=== PATIENT | female | born 1960 | race Caucasian/White ===

== ENCOUNTER 2016-08-27 14:36 | Inpatient (IN) | payer BC, OTHER ==
[2016-08-27] MEDS ORDERED: HYDROMORPHONE HCL INJ/PF 2 MG/ML AMPULE IV ONE ×3 (14:57→16:42)
[2016-08-27] MEDS ORDERED: ONDANSETRON HCL INJ/PF 4 MG/2 ML SDV IV ONE (14:57)
--- NOTE | 2016-08-27 14:57 | ER Document Report ---
ED Hip Pain/Injury - General Chief Complaint: Hip Injury Stated Complaint: FALL,HIP PAIN Time seen by provider: 14:51 Mode of Arrival: Medic Information source: Patient Notes: 55-year-old female slipped and fell in [place] on the cement injuring her left hip prior to arrival She had to call EMS she was unable to walk. No chronic diseases except that she is allergic to gluten and smokes tobbacco. - Related Data Allergies/Adverse Reactions: gluten [Gluten] Allergy (Verified 09/07/12 15:31) Home Medications: Current Home Medications No Home Medications 08/27/16 [History] Past Medical History - General Information source: Patient - Social History Smoking Status: Current Every Day Smoker Frequency of alcohol use: None Drug Abuse: None Lives with: Spouse/Significant other Family History: Reviewed & Not Pertinent - Medical History Medical History: Negative Past Surgical History: Reports: Hx Section - x2 Review of Systems - Review of Systems Constitutional: No symptoms reported EENT: No symptoms reported Cardiovascular: No symptoms reported Respiratory: No symptoms reported Gastrointestinal: No symptoms reported Genitourinary: No symptoms reported Female Genitourinary: No symptoms reported Musculoskeletal: See HPI Skin: No symptoms reported Hematologic/Lymphatic: No symptoms reported Neurological/Psychological: No symptoms reported Physical Exam - Vital signs Vitals: Temp Pulse Resp BP Pulse Ox 98.2 F 80 16 142/76 H 95 08/27/16 17:03 08/27/16 17:03 08/27/16 17:03 08/27/16 17:03 08/27/16 17:03 vitals at 1424 107/73, 71, rr 16, pulse ox 97% Interpretation: Normal - General General appearance: Appears well, Alert In distress: None - HEENT Head: Normocephalic, Atraumatic Eyes: Normal Pupils: PERRL Mucous membranes: Normal Neck: Supple. No: Lymphadenopathy - Respiratory Respiratory status: No respiratory distress Chest status: Nontender Breath sounds: Normal Chest palpation: Normal - Cardiovascular Rhythm: Regular Heart sounds: Normal auscultation Murmur: No - Abdominal Inspection: Normal Distension: No distension Bowel sounds: Normal Tenderness: Nontender. No: Tender Organomegaly: No organomegaly - Back Back: Normal, Nontender - Extremities General upper extremity: Normal inspection, Nontender, Normal color, Normal ROM , Normal temperature General lower extremity: Normal inspection, Nontender, Normal color, Normal ROM , Normal temperature, Normal weight bearing. No: Saqib's sign Hip: Tender - great trochantur, Other - foot externally rotated, not shortened, non tender pelvis, 2 + PT - Neurological Neuro grossly intact: Yes Cognition: Normal Orientation: AAOx4 [place] Coma Scale Eye Opening: Spontaneous [place] Coma Scale Verbal: Oriented [place] Coma Scale Motor: Obeys Commands Jorge Coma Scale Total: 15 Speech: Normal Motor strength normal: LUE, RUE, LLE, RLE Sensory: Normal - Psychological Associated symptoms: Normal affect, Normal mood - Skin Skin Temperature: Warm Skin Moisture: Dry Skin Color: Normal Course - Re-evaluation Re-evalutation: 08/27/16 16:08 will admit the pt for the subcapital femoral neck fracture. dr. ma aware. - Vital Signs Vital signs: Temp Pulse Resp BP Pulse Ox 98.2 F 80 16 142/76 H 95 08/27/16 17:03 08/27/16 17:03 08/27/16 17:03 08/27/16 17:03 08/27/16 17:03 - Transfer of Care Care transferred to following provider: Mayela yanez [employer] UP WORKER at 1901, pt awaiting bed Discharge - Discharge Clinical Impression: Fracture of femoral neck, left, closed Qualifiers: Encounter type: initial encounter Qualified Code(s): S72.002A - Fracture of unspecified part of neck of left femur, initial encounter for closed fracture Condition: Good Disposition: ADMITTED INPATIENT Admitting Provider: librado Unit Admitted: Surgical Floor
[2016-08-27] MEDS ORDERED: OXYCODONE-ACETAMINOPHEN 5-325 MG TABLET PO ONE (18:54)
[2016-08-27] MEDS ORDERED: NORMAL SALINE 1000 ML 1,000 ML IV PRN (23:02)
[2016-08-27] MEDS ORDERED: OXYCODONE HCL IR 5 MG TABLET PO PRN ×3 (23:02→23:07)
[2016-08-27] MEDS ORDERED: ONDANSETRON HCL INJ/PF 4 MG/2 ML SDV IV PRN (23:04)
[2016-08-27] MEDS: MORPHINE SULFATE 10 MG/ML INJ IV PRN (23:36)
[2016-08-27] MEDS: ONDANSETRON HCL INJ/PF 4 MG/2 ML SDV IV PRN (23:38)
[2016-08-28] MEDS: MORPHINE SULFATE 10 MG/ML INJ IV PRN ×5 (03:11→19:53)
[2016-08-28] MEDS: ONDANSETRON HCL INJ/PF 4 MG/2 ML SDV IV PRN ×2 (06:28→19:53)
[2016-08-28] MEDS ORDERED: MIDAZOLAM 2 MG/2 ML INJ ONE (07:27)
[2016-08-28] MEDS ORDERED: FENTANYL CITRATE INJ/PF 100 MCG/2 ML AMPUL ONE (07:27)
[2016-08-28] MEDS ORDERED: EPHEDRINE SULFATE INJ 50 MG/1 ML AMPULE ONE (07:28)
[2016-08-28] MEDS ORDERED: PROPOFOL INJ 200 MG/20 ML VIAL IV ONE (07:28)
[2016-08-28] MEDS ORDERED: DEXMEDETOMIDINE INJ 80 MCG/20 ML VIAL IV ONE (07:28)
[2016-08-28] MEDS ORDERED: ACETAMINOPHEN 100 ML IV ONE (07:28)
[2016-08-28] MEDS ORDERED: MORPHINE SULFATE 10 MG/ML INJ ONE (07:29)
--- NOTE | 2016-08-28 07:35 | PDOC H&P ---
History of Present Illness Admission Date/PCP: 08/27/16 16:37 History of Present Illness: LEVY KUMARI is a 55 year old female who tripped and fell and sustained a left hip injury. She was unable to ambulate. She is brought to the emergency room. A valgus impacted left femoral neck fracture was then a 5. She is admitted to the orthopedic service for fracture management. Past Medical History Cardiac Medical History: Denies: Myocardial Infarction, Hypertension Pulmonary Medical History: Denies: Asthma Neurological Medical History: Denies: Seizures GI Medical History: Denies: Hepatitis, Hiatal Hernia Hematology: Denies: Anemia, Sickle Cell Disease Past Surgical History Past Surgical History: Reports: Section - x2 Denies: Amputation, Hysterectomy, Mastectomy, Pacemaker Social History Lives with: Spouse/Significant other Smoking Status: Current Some Day Smoker Cigarettes Packs Per Day: 0.5 Number of Years Smokin Last Time Smoked: today Frequency of Alcohol Use: None Hx Recreational Drug Use: No Drugs: None Hx Prescription Drug Abuse: No - Advance Directive Resuscitation Status: Full Code Family History Family History: Reviewed & Not Pertinent Parental Family History Reviewed: No Children Family History Reviewed: No Sibling(s) Family History Reviewed.: No Medication/Allergy Home Medications: No Home Medications 08/27/16 Allergies/Adverse Reactions: gluten [Gluten] Allergy (Verified 09/07/12 15:31) Review of Systems All systems: as per PMH Physical Exam Vital Signs: Temp Pulse Resp BP Pulse Ox 36.8 C 77 18 143/67 H 93 08/28/16 04:15 08/28/16 04:15 08/28/16 04:15 08/28/16 04:15 08/28/16 04:15 Intake & Output 08/27/16 08/28/16 08/29/16 06:59 06:59 06:59 Output Total 700 Balance -700 Weight 53.524 kg General appearance: PRESENT: mild distress Head exam: PRESENT: normocephalic Eye exam: PRESENT: EOMI Respiratory exam: PRESENT: unlabored Cardiovascular exam: PRESENT: RRR Pulses: PRESENT: +1 pedal pulses bilateral Vascular exam: PRESENT: normal capillary refill GI/Abdominal exam: PRESENT: soft Rectal exam: PRESENT: deferred Extremities exam: PRESENT: other - Patient lying in bed and only minor distress. Any passive range of motion of the left lower extremity is painful. Distal neurovascular examination is intact. Leg lengths are equal. Neurological exam: PRESENT: alert, awake, oriented to person, oriented to place , oriented to time, oriented to situation, CN II-XII grossly intact. ABSENT: motor sensory deficit Psychiatric exam: PRESENT: appropriate affect, normal mood. ABSENT: homicidal ideation, suicidal ideation Results Impressions: Hip X-Ray 08/27/16 14:57 IMPRESSION: Acute subcapital left femoral neck fracture with slight valgus angulation at the fracture site Status: Imported from PACS Assessment & Plan - Diagnosis (1) Fracture of femoral neck, left, closed Qualifiers: Encounter type: initial encounter Qualified Code(s): S72.002A - Fracture of unspecified part of neck of left femur, initial encounter for closed fracture Is this a current diagnosis for this admission?: YesPlan: 55-year-old white female with a noncontributory past medical history who has fallen and sustained a left femoral neck fracture. Plan will be for a percutaneous pinning under local Mac anesthesia pending OR availability. - Time Time Spent: 50 to 70 Minutes Anticipated discharge: Home with Homehealth Within: within 24 hours
[2016-08-28] MEDS ORDERED: BUPIVACAINE HCL 0.5%-EPI 1:200000 INJ/PF 30 ML VIAL ONE (07:42)
[2016-08-28] MEDS ORDERED: BUPIVACAINE HCL 0.25% /EPINEPHRINE INJ/PF 30 ML SDV ONE (07:42)
[2016-08-28] MEDS ORDERED: BUPIVACAINE HCL 0.5 % INJ/PF 30 ML SDV ONE (07:42)
[2016-08-28] MEDS ORDERED: BUPIVACAINE HCL 0.25 % INJ/PF (2.5 MG/1 ML) 30 ML VIAL ONE (07:42)
[2016-08-28 08:11] LABS: ABSOLUTE EOSINOPHILS # (AUTO) 0.1 10^3/uL (0.0-0.6); ABSOLUTE MONOCYTES (AUTO) 0.9 10^3/uL (0.1-1.4); ABSOLUTE NEUT (AUTO) 7.2 10^3/uL (1.7-8.2); BASOPHILS % (AUTO) 0.2 % (0-2); EOSINOPHILS % (AUTO) 1.4 % (0-6); HEMATOCRIT 38.3 % (36.0-47.0); HEMOGLOBIN 12.7 g/dL (12.0-15.5); HGB HCT DIFFERENCE -0.2; MEAN CORPUSCULAR HEMOGLOBIN 31.4 pg (27.0-33.4); MEAN CORPUSCULAR HGB CONC 33.2 g/dL (32.0-36.0); MEAN CORPUSCULAR VOLUME 95 fl (80-97); MONOCYTES % (AUTO) 10.2 % (3-13); RED BLOOD COUNT 4.05 10^6/uL (3.72-5.28); RED CELL DISTRIBUTION WIDTH 13.4 % (11.5-14.0); SEGMENTED NEUTROPHILS % (AUTO) 77.2 % (42-78); WHITE BLOOD COUNT 9.3 10^3/uL (4.0-10.5)
[2016-08-28] MEDS ORDERED: ALBUTEROL SULFATE 0.083% NEB 2.5 MG/3 ML AMPUL NEB ONE (08:13)
[2016-08-28] MEDS ORDERED: SCOPOLAMINE HYDROBROMIDE 1.5 MG PATCH.TD72 ONE (08:18)
[2016-08-28 08:19] LABS: PROTHROMBIN TIME 12.9 SEC (11.4-15.4)
[2016-08-28 08:20] LABS: PARTIAL THROMBOPLASTIN TIME 28.4 SEC (23.5-35.8)
[2016-08-28] MEDS ORDERED: CEFAZOLIN INJ 1 GM VIAL ONE (08:22)
[2016-08-28 08:29] LABS: ANION GAP 7 (5-19); BLOOD UREA NITROGEN 8 mg/dL (7-20); CALCIUM 8.9 mg/dL (8.4-10.2); CARBON DIOXIDE 26 mmol/L (22-30); CHLORIDE 106 mmol/L (98-107); CREATININE RESULT 0.67 mg/dL (0.52-1.25); GLUCOSE 108 mg/dL (75-110); POTASSIUM 3.9 mmol/L (3.6-5.0); SODIUM 138.9 mmol/L (137-145)
--- NOTE | 2016-08-28 08:55 | Operative Report ---
Operative Report DATE OF SURGERY: 08/28/16 PREOPERATIVE DIAGNOSIS: Left femoral neck fracture OPERATION: Percutaneous pinning of left femoral neck fracture SURGEON: DONNA HAWKINS ANESTHESIA: LMAC PROCEDURE: Implants used: Domingo titanium 6.5 mm cannulated screws, partially threaded 3 With the patient supine on the fracture table the left lower extremity hindquarter prepped and draped in a sterile fashion. Under fluoroscopic guidance. The pins for the Domingo titanium 6.5 mm partially-threaded screws are placed percutaneously through the lateral femur up into the femoral neck and head. The first pin is placed along the calcar and the second to place more proximally. The position is checked fluoroscopically in both AP and lateral dimensions and felt to be adequate. Subsequently a 90 followed by 285 mm screws were advanced over the pins and seated on the lateral cortex. The pins are removed. The screw position was again checked fluoroscopically and felt to be adequate. The wound is irrigated. It's closed using Vicryl and ida. A sterile OpSite was applied and patient returned to PACU in satisfactory condition.
[2016-08-28] MEDS ORDERED: FENTANYL CITRATE INJ/PF 100 MCG/2 ML AMPUL IV PRN ×3 (09:04)
[2016-08-28] MEDS ORDERED: MORPHINE SULFATE 10 MG/ML INJ IV PRN (09:04)
[2016-08-28] MEDS ORDERED: DIPHENHYDRAMINE HCL 50 MG/ML VIAL IV PRN (09:04)
[2016-08-28] MEDS ORDERED: MEPERIDINE HCL/PF INJ 25 MG/1 ML DISP.SYRIN IV PRN (09:04)
[2016-08-28] MEDS ORDERED: PROMETHAZINE HCL INJ 25 MG/1 ML VIAL IV PRN ×2 (09:04)
[2016-08-28] MEDS ORDERED: OXYCODONE-ACETAMINOPHEN 5-325 MG TABLET PO PRN ×2 (09:04)
[2016-08-28] MEDS: FENTANYL CITRATE INJ/PF 100 MCG/2 ML AMPUL ONE ×2 (09:12→09:23)
[2016-08-28] MEDS ORDERED: METOCLOPRAMIDE HCL INJ/PF 10 MG/2 ML SDV ONE (10:30)
[2016-08-28] MEDS ORDERED: DEXAMETHASONE SOD PHOSPHATE INJ 4 MG/1 ML VIAL ONE (10:30)
[2016-08-28] MEDS ORDERED: PHENYLEPHRINE HCL INJ/PF 10 MG/1 ML SDV ONE (10:30)
[2016-08-28] MEDS ORDERED: ONDANSETRON HCL INJ/PF 4 MG/2 ML SDV ONE (10:30)
[2016-08-28] MEDS ORDERED: LIDOCAINE 2% INJ-PF (20 MG/ML) 10 ML AMPUL ONE (10:30)
--- NOTE | 2016-08-28 10:38 | EKG REPORT ---
SEVERITY:- ABNORMAL ECG - SINUS RHYTHM PROBABLE LEFT ATRIAL ABNORMALITY PROBABLE LEFT VENTRICULAR HYPERTROPHY : Confirmed by: Yolande Marcos 28-Aug-2016 10:38:09
[2016-08-28] MEDS: RINGERS SOLUTION,LACTATED 1,000 ML IV PRN ×2 (11:03→16:59)
[2016-08-28] MEDS: CEFAZOLIN SODIUM 1 GM in DEXTROSE 5%-WATER 50 ML IV SCH (17:37)
[2016-08-28] MEDS: RIVAROXABAN 10 MG TABLET PO SCH (21:48)
[2016-08-29] MEDS: CEFAZOLIN SODIUM 1 GM in DEXTROSE 5%-WATER 50 ML IV SCH (01:12)
[2016-08-29] MEDS: MORPHINE SULFATE 10 MG/ML INJ IV PRN ×7 (01:55→21:08)
[2016-08-29] MEDS: ONDANSETRON HCL INJ/PF 4 MG/2 ML SDV IV PRN (01:55)
[2016-08-29 07:03] LABS: ABSOLUTE LYMPHOCYTES (AUTO) 1.6 10^3/uL (0.5-4.7); ABSOLUTE MONOCYTES (AUTO) 1.2 10^3/uL (0.1-1.4); ABSOLUTE NEUT (AUTO) 8.1 10^3/uL (1.7-8.2); BASOPHILS % (AUTO) 0.1 % (0-2); EOSINOPHILS % (AUTO) 0.4 % (0-6); HEMATOCRIT 33.5 % (36.0-47.0); HEMOGLOBIN 11.5 g/dL (12.0-15.5); LYMPHOCYTES % (AUTO) 14.2 % (13-45); MEAN CORPUSCULAR HEMOGLOBIN 32.3 pg (27.0-33.4); MEAN CORPUSCULAR HGB CONC 34.4 g/dL (32.0-36.0); MEAN CORPUSCULAR VOLUME 94 fl (80-97); MONOCYTES % (AUTO) 10.9 % (3-13); RED BLOOD COUNT 3.57 10^6/uL (3.72-5.28); SEGMENTED NEUTROPHILS % (AUTO) 74.4 % (42-78); WHITE BLOOD COUNT 10.9 10^3/uL (4.0-10.5)
[2016-08-29 07:18] LABS: ANION GAP 6 (5-19); BLOOD UREA NITROGEN 11 mg/dL (7-20); CALCIUM 9.1 mg/dL (8.4-10.2); CARBON DIOXIDE 30 mmol/L (22-30); CHLORIDE 102 mmol/L (98-107); CREATININE RESULT 0.73 mg/dL (0.52-1.25); GLUCOSE 88 mg/dL (75-110); POTASSIUM 4.3 mmol/L (3.6-5.0)
--- NOTE | 2016-08-29 08:36 | PDOC PROGRESS REPORT ---
Subjective Progress Note for:: 08/29/16 Subjective:: Patient complains of minor discomfort Physical Exam Vital Signs: Temp Pulse Resp BP Pulse Ox 36.9 C 59 L 17 117/54 L 93 08/29/16 04:00 08/29/16 04:00 08/29/16 04:00 08/29/16 04:00 08/29/16 04:00 Intake & Output 08/28/16 08/29/16 08/30/16 06:59 06:59 06:59 Intake Total 2461 Output Total 700 3260 Balance -700 -799 Weight 53.524 kg 57.9 kg General appearance: PRESENT: mild distress, thin Head exam: PRESENT: normocephalic Eye exam: PRESENT: EOMI Respiratory exam: PRESENT: unlabored Cardiovascular exam: PRESENT: RRR Vascular exam: PRESENT: normal capillary refill GI/Abdominal exam: PRESENT: soft Rectal exam: PRESENT: deferred Extremities exam: PRESENT: other - Left hip dressing is clean dry and intact. Leg lengths are equal. Neurovascular examinations intact. Neurological exam: PRESENT: alert, awake, oriented to person, oriented to place , oriented to time, oriented to situation, CN II-XII grossly intact. ABSENT: motor sensory deficit Psychiatric exam: PRESENT: appropriate affect, normal mood. ABSENT: homicidal ideation, suicidal ideation Results Laboratory Results: 08/29/16 05:56 08/29/16 05:56 08/29/16 08/29/16 05:56 05:56 WBC 10.9 H RBC 3.57 L Hgb 11.5 L Hct 33.5 L MCV 94 MCH 32.3 MCHC 34.4 RDW 13.0 Plt Count 135 L Seg Neutrophils % 74.4 Lymphocytes % 14.2 Monocytes % 10.9 Eosinophils % 0.4 Basophils % 0.1 Absolute Neutrophils 8.1 Absolute Lymphocytes 1.6 Absolute Monocytes 1.2 Absolute Eosinophils 0.0 Absolute Basophils 0.0 Sodium 138.0 Potassium 4.3 Chloride 102 Carbon Dioxide 30 Anion Gap 6 BUN 11 Creatinine 0.73 Est GFR ( Amer) > 60 Est GFR (Non-Af Amer) > 60 Glucose 88 Calcium 9.1 Impressions: Hip X-Ray 08/28/16 00:00 IMPRESSION: Intraoperative C-arm images, left subcapital femoral neck fracture in good alignment Status: Imported from PACS Assessment & Plan - Diagnosis (1) Fracture of femoral neck, left, closed Qualifiers: Encounter type: initial encounter Qualified Code(s): S72.002A - Fracture of unspecified part of neck of left femur, initial encounter for closed fracture Is this a current diagnosis for this admission?: YesPlan: 55-year-old white female postop day 1 from percutaneous pinning of a left femoral neck fracture. Unfortunate, she was not seen by physical therapy yesterday and hence is probably not can be ready for discharge today. An order is rewritten for physical therapy for touchdown weightbearing on the left lower extremity. Anticipate discharge tomorrow - Time Time Spent with patient: 15-24 minutes Anticipated discharge: Home with Homehealth Within: within 24 hours
[2016-08-29] MEDS: RIVAROXABAN 10 MG TABLET PO SCH (21:28)
[2016-08-30] MEDS: MORPHINE SULFATE 10 MG/ML INJ IV PRN ×3 (00:09→06:33)
[2016-08-30] MEDS: ONDANSETRON HCL INJ/PF 4 MG/2 ML SDV IV PRN (09:58)
[2016-08-30 11:11] VITALS: BP 117/54
--- NOTE | 2016-09-01 08:12 | PDOC DISCHARGE SUMMARY ---
General - Admit/Disc Date/PCP Admission Date/Primary Care Provider: 08/27/16 16:37 Discharge Date: 08/30/16 - Discharge Diagnosis (1) Fracture of femoral neck, left, closed Is this a current diagnosis for this admission?: Yes - Additional Information Resuscitation Status: Full Code Discharge Activity: Activity As Tolerated, Balance Activity w/Rest, No Driving Home Medications: No Home Medications 08/27/16 History of Present Illness History of Present Illness: The patient's a 55-year-old white female who fell onto her left hip and sustained an injury which left her unable to weight-bear. She is brought to the emergency room were radiographs demonstrated a valgus impacted left femoral neck fracture Hospital Course Hospital Course: Patient was taken to the operating room and underwent percutaneous screw fixation of a valgus impacted left femoral neck fracture. She tolerated the procedure without complication. She was returned to floor in satisfactory condition. Begun on a touchdown weightbearing, rehabilitation. Physical therapy not see the patient first a. She seems secondary and once she was clear from a independent standpoint was ready for discharge home. Physical Exam Vital Signs: Temp Pulse Resp BP Pulse Ox 36.9 C 68 18 117/54 L 95 08/30/16 11:06 08/30/16 11:06 08/30/16 11:06 08/30/16 11:06 08/30/16 11:06 General appearance: PRESENT: no acute distress Head exam: PRESENT: normocephalic Eye exam: PRESENT: EOMI Respiratory exam: PRESENT: unlabored Cardiovascular exam: PRESENT: RRR Pulses: PRESENT: +1 pedal pulses bilateral Vascular exam: PRESENT: normal capillary refill GI/Abdominal exam: PRESENT: soft Extremities exam: PRESENT: other - Left hip dressing clean dry and intact. Leg lengths are equal. Neurovascular examinations intact. Results Laboratory Results: 08/29/16 05:56 08/29/16 05:56 Impressions: Hip X-Ray 08/28/16 00:00 IMPRESSION: Intraoperative C-arm images, left subcapital femoral neck fracture in good alignment Lumbar Spine X-Ray 08/29/16 00:00 IMPRESSION: Degenerative changes at L5-S1. On the lateral view, at the upper edge of the field of view there is buckling of the anterior cortex of T12 which could indicate a compression deformity. Clinical correlation recommended Status: Imported from PACS Qualifiers PATEINT BEING DISCHARGED WITH ANY OF THE FOLLOWING DIAGNOSIS?: No VTE patient discharged on overlapping Therapy?: Yes Plan Discharge Plan: Social work to arrange for home health nursing, home health physical therapy, we 'll Walker, bedside commode. Follow-up will be with Dr. Ernandez in the [facility] for surgeon approximately 2 weeks for staple removal. Time Spent: Less than 30 Minutes
== END 2016-08-30 11:41 | disposition home health service (06) | DRG 482 ==
LOC: ER 14:36 → EH 16:37 → 2N 22:47 → 4S 08-28 10:00
PROVIDERS: ADMIT Orthopaedic Surgery; ATTEND Orthopaedic Surgery
PROC: 0QH734Z Insertion of Internal Fixation Device into Left Upper Femur, Percutaneous Approach (ICD-10-PCS; principal; 2016-08-28 08:00)
DX: S72.012A Unspecified intracapsular fracture of left femur, initial encounter for closed fracture (principal); F17.210 Nicotine dependence, cigarettes, uncomplicated; W18.39XA Other fall on same level, initial encounter; Y93.89 Activity, other specified; Y92.830 Public park as the place of occurrence of the external cause
CPT/HCPCS: 01230; 36415; 72100; 80048; 85025; 85610; 85730; 93005; 93010; 94640; 96374; 96375; 99285; J0131; J0690; J1100; J1170; J2250; J2270; J2370; J2405; J2704; J2765; J3010; J3490; J7030; J7120